=== PATIENT | female | born 1975 | race Hispanic/Latino ===

== ENCOUNTER 2018-02-21 13:19 | Emergency (ER) | payer OTHER ==
[2018-02-21] MEDS ORDERED: IBUPROFEN 600 MG TABLET ONE (16:05)
== END 2018-02-21 16:23 | disposition home or self-care (01) ==
LOC: EDH 13:19
DX: S82.831A Other fracture of upper and lower end of right fibula, initial encounter for closed fracture (principal); S49.82XA Other specified injuries of left shoulder and upper arm, initial encounter; I10 Essential (primary) hypertension; V49.49XA Driver injured in collision with other motor vehicles in traffic accident, initial encounter; Y93.89 Activity, other specified; Y92.89 Other specified places as the place of occurrence of the external cause; Y99.8 Other external cause status
CPT/HCPCS: 29515; 72040; 73030; 73610